=== PATIENT | female | born 2000 | race Caucasian/White ===

== ENCOUNTER 2019-06-17 20:00 | Emergency (ER) | payer SELFPAY | END 2019-06-17 20:40 | disposition left against medical advice (07) | LOC: ER 20:02 | DX: Z53.21 Procedure and treatment not carried out due to patient leaving prior to being seen by health care provider (principal) ==

== ENCOUNTER 2024-02-18 11:47 | Emergency (ER) | payer MEDICAID ==
[~2024-02-18] VITALS: Ht 162.6 cm; Wt 54.4 kg
[2024-02-18] MEDS ORDERED: CALA177S6 TP (12:51)
[2024-02-18 13:03] VITALS: BP 99/50; O2SAT 99
== END 2024-02-18 13:04 | disposition home or self-care (01) ==
LOC: ER 11:47
DX: R21 Rash and other nonspecific skin eruption (principal); Z79.899 Other long term (current) drug therapy
CPT/HCPCS: 36415; A4606; A4663